=== PATIENT | male | born 1960 | race Caucasian/White ===

== ENCOUNTER 2016-12-19 11:02 | Outpatient (CLI) | payer OTHER ==
[~2016-12-19] VITALS: Ht 180.3 cm; Wt 120.5 kg
--- NOTE | ~2016-12-19 | HEMODYNAMI ---
PATIENT:MELISA PATTERSON MEDICAL RECORD: [id number] : 58 LOCATION:[facility] ADMISSION DATE: 12/19/16 Generatedon:12/19/201614:03 Patient name: MELISA PATTERSON Patient #: [id number] SSN: DO B: 1960 Date of study: 12/19/2016 Page: Of Hemodynamic Procedure Report Patient Data Patient Demographics Procedure consent was obtained First Name: MELISA Gender: Male Last Name: YESENIA : 1960 Middle Initial: L Age: 56 year(s) Patient #: [id number] Race: Unknown Additional ID: [id number] Contact details Address: [place] [address] State: [place] City: [place] Zip code: [address] Past Medical History Allergies: No known allergies Admission Admission Data Admission Date: 12/19/2016 Admission Time: 11:02 Admit Source: Other Insurance Payor: Private health insurance Height (in.): 71 BSA: 2.38 (m2) Height (cm.): 180.34 BMI: 36.96 (kg/m2) Weight (lbs.): 265 Weight (kg.): 120.2 Lab Results Lab Result Date: 12/19/2016 Lab Result Time: 11:40 Biochemistry Name Units Result Min Max Creatinine mg/dl 2.7 --(----)-* 0.6 1.3 CBC Name Units Result Min Max Hemoglobin g/dl 9.4 *-(----)-- 13.5 17.5 Coagulation Name Units Result Min Max INR units 1.11 --(---*)-- 0.85 1.17 PT sec 14.2 --(---*)-- 11.6 15 Procedure Procedure Types Cath Procedure Diagnostic Procedure [facility] w/Coronaries Procedure Description Procedure Date Procedure Date: 12/19/2016 Procedure Start Time: 13:49 Procedure End Time: 14:02 Procedure Staff Name Function Minor Spaulding MD Performing Physician Francine Luong RT Scrub Kristen Xavier RN Nurse Quentin Tyson RN Guide Alpine Mehrdad Worthington RT Monitor Alex Bustos RT Monitor Procedure Data Cath Procedure Fluoroscopy Diagnostic fluoroscopy Total fluoroscopy Time: 4.3 time: 4.3 min min Diagnostic fluoroscopy Total fluoroscopy dose: 838 dose: 838 mGy mGy Contrast Material Contrast Material Type Amount (ml) Isovue 300 72 Entry Location Entry Primary Successful Side Size Upsize Upsize Entry Closure Succes sful Closure Location (Fr) 1 (Fr) 2 (Fr) Remarks Device Remarks Radial Right 6 Fr artery Short Estimated blood loss: 10 ml Diagnostic catheters Device Type Used For End Catheter Placement Terumo 5Fr Jackson 110cm Coronary catheter Angiography Procedure Complications No complications Procedure Medications Medication Administration Route Dosage Oxygen NC 2 l/min Benadryl I.V. 50 mg Lidocaine 2% added to field 20 Heparin Flush Bag added to field 2 bags (1000units/500ml NS) Zofran I.V. 4 mg Versed I.V. 1 mg Fentanyl I.V. 50 mcg Versed I.V. 1 mg Fentanyl I.V. 50 mcg Radial Cocktail I.A. 1 syringe (Verapomil 2mg/Nitro 400mcg/Heparin 1500units) Versed I.V. 1 mg Hemodynamics Rest BSA: 2.38 (m2) HGB: 9.4 (g/dl) O2 Consumption: Estimated: 275.12 (ml/min) O2 Con sumption indexed: Estimated:115.6 (ml/min/m) Heart Rate: 63 (bpm) Pressure Samples Time Site Value (mmHg) Purpose Heart Use Rate(bpm) 13:52 AO 148/68(98) Snapshot 62 13:56 LV 95/6,7 Snapshot 41 13:56 AO 160/70(103) Pullback 62 13:56 LV 143/19,89 Pullback 62 Gradients Valve Time Site 1 Site 2 Mean SEP/DFP Peak To Heart Use (mmHg) (sec/min) Peak Rate (mmHg) (bpm) Aortic 13:56 LV AO 0 10 0 62 143/19,89 160/70(103) Calculations Valve P-P Mean Valve Index Valve Source Name Gradient Area Flow (cm2) Aortic 0 0 0 0 Snapshots Pre Cath Intra NCS Post Cath Vital Signs Time Heart Resp SPO2 etCO2 [id number] NIBP (mmHg) Rhythm Pain Sedation Rate (ipm) (%) (mmHg) (mmHg) Status Level (bpm) 13:33:08 61 16 97 0 0 Measuring NSR 0 (11) 10(A) , No pain 13:33:51 60 25 98 0 0 195/85(156) NSR 0 (11) 10(A) , No pain 13:38:29 56 18 98 0 0 208/86(159) NSR 0 (11) 10(A) , No pain 13:43:06 57 19 98 0 0 195/88(149) NSR 0 (11) 10(A) , No pain 13:47:38 62 15 98 0 0 179/81(142) NSR 0 (11) 9(A) , No pain 13:53:06 62 26 97 0 0 156/74(118) NSR 0 (11) 9(A) , No pain 13:57:28 65 26 96 0 0 157/78(120) NSR 0 (11) 9(A) , No pain 14:01:54 62 28 97 0 0 160/75(135) NSR 0 (11) 10(A) , No pain Medications Time Medication Route Dose Verified Delivered Reason Notes Effectiveness by by 13:38:21 Oxygen NC 2 l/min Minor Peterson used for [facility]. Iam Xavier RN procedure 13:38:33 Benadryl I.V. 50 mg Minor Peterson used for [facility]. Iam Xavier RN procedure 13:41:43 Lidocaine 2% added 20ml Minor Gaxiola for local to vial [facility] anesthetic field MD FRAIRE 13:41:44 Zofran I.V. 4 mg Minor Peterson [address] [facility] Iam Xavier RN physician 13:41:49 Heparin Flush added 2 bags Minor Gaxiola used for Bag to [facility] procedure (1000units/500ml field MD FRAIRE NS) 13:44:52 Versed I.V. 1 mg Minor Peterson for sedation St. Iam Xavier RN, MD 13:44:57 Fentanyl I.V. 50 mcg Minor Peterson for sedation St. Iam Xavier RN, MD 13:50:41 Radial Cocktail I.A. 1 Minor Gaxiola for (Verapomil syringe [facility] vasodilation 2mg/Nitro MD FRAIRE 400mcg/Heparin 1500units) 13:52:08 Versed I.V. 1 mg Minor Peterson for sedation St. Iam Xavier RN, MD 13:52:11 Fentanyl I.V. 50 mcg Minor Peterson for sedation St. Iam Xavier RN, MD 13:56:36 Versed I.V. 1 mg Minor Gaxiola for sedation St. Iam Spaulding MD, MD Procedure Log Time Note 13:27:52 Diagnostic Cath status Elective 13:27:55 Quentin Tyson RN sent for patient. Start room use. 13:27:56 Time tracking: Regular hours 13:28:02 Plan of Care:Hemodynamics will remain stable., Cardiac rhythm will remain stable., Comfort level will be maintained., Respiratory function will remain adequate., Patient/ family verbilizes understanding of procedure., Procedure tolerated without complication., Recovers from procedure without complications.. 13:28:43 Patient received from Outpatients to [facility] 2 Alert and oriented. Tansferred to table in Supine position. 13:28:47 Warm blankets applied, and parveen hugger turned on for patient comfort. 13:28:48 Correct patient and procedure confirmed by team. 13:28:51 Signed procedure consent form obtained from patient. 13:28:58 ECG and BP/O2 sat monitors applied to patient. 13:29:04 Baseline sample Acquired. 13:31:17 Vital chart was started 13:31:25 Baseline sample Acquired. 13:31:32 Rhythm: sinus rhythm 13:33:23 Full Disclosure recording started 13:35:10 Lab Result : Creatinine 2.7 mg/dl 13:35:10 Lab Result : Hemoglobin 9.4 g/dl 13:35:10 Lab Result : INR 1.11 units 13:35:10 Lab Result : PT 14.2 sec 13:35:13 Lab results completed and on chart. 13:37:19 Patient Height : 71 inches 13:37:24 Patient Weight : 265 lbs 13:37:24 Admit Source: Other 13:37:30 Insurance Payor : Private health insurance 13:38:21 Oxygen 2 l/min NC was given by Kristen Xavier RN; used for procedure; 13:38:33 Benadryl 50 mg I.V. was given by Kristen Xavier RN; used for procedure; 13:38:43 H&P Date Dictated: 12/19/2016 Within 30 days and on chart., H&P Addendum completed by physician on day of procedure. (MUST COMPLETE FOR ALL OUTPATIENTS). 13:38:45 Pre-procedure instructions explained to patient. 13:38:45 Pre-op teaching completed and patient verbalized understanding. 13:38:46 Family in waiting room. 13:38:47 Patient NPO since Midnight. 13:38:52 Patient allergic to No known allergies 13:38:55 Is the patient allergic to Iodine/contrast media? No. 13:38:56 Is patient on blood thinner?Yes 13:39:00 ACC The patient was administered the following blood thiners within the last 24 hours: None 13:39:02 Patient diabetic? Yes. 13:39:06 If diabetic: On Metformin? No 13:39:09 Previous problem with sedation/anesthesia? Yes nausea 13:39:12 Snore? Yes 13:39:28 Sleep apnea? Yes 13:39:29 Deviated septum? No 13:39:30 Opens mouth fully? Yes 13:39:31 Sticks out tongue? Yes 13:39:34 Airway obstruction? No ? 13:39:37 Dentures? No ? 13:39:43 Pre procedure: right dorsailis pedis pulse 1+ Palpable, but thready & weak; easily obliterated 13:39:46 Patient pain scale 0/10 ?. 13:39:50 IV patent on arrival in left antecubital with 0.9% NaCl at KVO. 13:40:05 Modified Richard's test Ulnar < 7 seconds 13:40:07 Right Radial & Right Groin area was prepped with chlora-prep and draped in sterile fashion 13:40:13 Alarms reviewed by R. N. 13:40:13 Sharps counted by scrub and verified by R.N. 13:40:18 Use device set Radial Dx 13:40:21 Tegaderm 4 x 4 opened to sterile field. 13:40:21 Acist Manifold opened to sterile field. 13:40:22 Acist Hand Control opened to sterile field. 13:40:23 Acist Syringe opened to sterile field. 13:40:23 Cardinal Cath Pack opened to sterile field. 13:40:24 Bag Decanter opened to sterile field. 13:40:24 Terumo 6Fr Slender Glidesheath opened to sterile field. 13:40:25 St Gustavo 260cm J .035 wire opened to sterile field. 13:40:33 --------ALL STOP TIME OUT------ 13:40:33 Final Timeout: patient, procedure, and site verified with staff and physician. All members of the team are in agreement. 13:40:35 Right Radial & Right Groin site verified by team. 13:40:37 Physical assessment completed. ASA score P 2 - A patient with mild systemic disease as per Minor Spaulding MD. 13:40:40 Sedation plan: IV Moderate Sedation Versed, Fentanyl 13:41:43 Lidocaine 2% 20ml vial added to field was given by Minor Spaulding MD; for local anesthetic; 13::44 Zofran 4 mg I.V. was given by Kristen Xavier RN; Per physician; 13:41:49 Heparin Flush Bag (1000units/500ml NS) 2 bags added to field was given by Minor Spaulding MD; used for procedure; 13:41:49 ACC Patient presents with Stable Angina CCS Anginal Class 2--Slight limitation of ordinary activity. 13:41:57 ACCPatient has been prescribed/administered the following anti-anginal medication within the last 2 weeks: None 13:44:52 Versed 1 mg I.V. was given by Kristen Xavier RN; for sedation; 13:44:57 Fentanyl 50 mcg I.V. was given by Kristen Xavier RN; for sedation; 13:46:34 Zero performed for pressure channel P1 13:49:12 Procedure started. 13:49:22 Local anesthetic to right radial artery with Lidocaine 2% by Minor Spaulding MD.INITIAL ACCESS ONLY 13:49:33 A 6 Fr Short sheath was inserted into the Right Radial artery 13:49:54 A Terumo 5Fr Jackson 110cm catheter was advanced over the wire and used for Coronary Angiography. 13:50:41 Radial Cocktail (Verapomil 2mg/Nitro 400mcg/Heparin 1500units) 1 syringe I.A. was given by Minor Spaulding MD; for vasodilation; 13:52:08 Versed 1 mg I.V. was given by Kristen Xavier RN; for sedation; 13:52:11 Fentanyl 50 mcg I.V. was given by Kristen Xavier RN; for sedation; 13:52:30 RCA angiography performed. 13:54:24 LCA angiography performed. 13:56:31 LV angiography performed. 13:56:32 LV gram done using LI 13:56:36 Versed 1 mg I.V. was given by Minor Spaulding MD; for sedation; 13:56:39 EF : 50 % 13:56:42 LV hemodynamics recorded. 13:56:45 Injector settings: Ml/sec: 5, Volume: 10, 13:56:48 Catheter removed. 13:57:14 Terumo TR Band Large opened to sterile field. 13:57:20 Procedure ended.(Physican Out) 13:57:34 Fluoroscopy time 04.30 minutes. 13:57:37 Flurop Dose total: 838 13:57:37 Fluoroscopy dose: 838 mGy 13:57:42 Contrast amount:Isovue 300 72ml. 13:57:44 Sharps counted by scrub and verified by R.N. 13:58:24 TR band inflated with 12cc of air. 13:58:33 Insertion/operative site no bleeding no hematoma. 13:58:36 Post Procedure Pulses reassessed and unchanged 13:58:39 Post-procedure physical assessment completed. ASA score P 2 - A patient with mild systemic disease as per Minor Spaulding MD. 13:58:43 Post procedure rhythm: unchanged. 13:58:47 Estimated blood loss: 10 ml 13:58:51 Post procedure instruction explained to patient.Patient verbalizes understanding. 13:58:52 Patient needs reinforcement of post procedure teaching. 13:58:53 Procedure and supply charges have been captured, reviewed, submitted and are correct. 13:58:56 Procedure Complication : No complications 14:02:26 Vital chart was stopped 14:02:27 See physician's report for complete and final results. 14:02:33 Report given to Post Procedure Room. 14:02:35 Patient transfered to Post Procedure Room with Stretcher. 14:02:38 Procedure ended. 14:02:38 Full Disclosure recording stopped 14:02:42 End room use (Document Last) Device Usage Item Name Manufacture Quantity Catalog Hospital Part Current Minimal Lot# / Number Charge Number Stock Stock Serial# Code Tegaderm 4 1 [id number] [id number] [id number] 5 x 4 Acist Acist 1 41838 798024 962058 686638 5 Manifold [employer] Acist Hand Acist 1 31810 513074 057207 203816 5 Control [employer] Inc Acist Acist 1 99243 615877 887094 725424 20 Syringe [employer] Inc Cardinal Cardinal 1 [id number] 801312 94877 597892 5 Cath Pack Health Bag Microtek 1 2002S 260405 35077 654369 5 Decanter [employer] Inc. Terumo 6Fr Terumo 1 [id number] 652417 201327 838453 [address] Gustavo 1 444613 963756 473693 897273 30 260cm J .035 wire Terumo 5Fr Terumo 1 40-7194 181516 520983 836436 5 Jackson 110cm catheter Terumo TR Terumo 1 [id number] 007162 997683 40 Band Large Signature Audit [place] Stage Time Signature Unsigned Intra-Procedure 12/19/2016 Alex Bustos 2:03:27 PM RT(R) Signatures Monitor : Mehrdad Worthington RT Signature : Date : Time : Monitor : Alex Bustos RT Signature : Date : Time : [address] [address]
[2016-12-19] MEDS ORDERED: JANUVIA100 MG PO (11:54)
[2016-12-19] MEDS ORDERED: COLCRYS0.6 MG PO (11:55)
[2016-12-19] MEDS ORDERED: PRAVACHOL40 MG PO (11:55)
[2016-12-19] MEDS ORDERED: METOLAZONE5 MG PO (11:56)
[2016-12-19] MEDS ORDERED: COUMADIN5 MG PO (11:57)
[2016-12-19] MEDS ORDERED: COUMADIN7.5 MG PO (11:58)
[2016-12-19] MEDS ORDERED: COREG25 MG PO (11:59)
[2016-12-19] MEDS ORDERED: LISINOPRIL10 MG PO (11:59)
[2016-12-19] MEDS ORDERED: FUROSEMIDE20 MG PO (12:00)
[2016-12-19] MEDS ORDERED: LANOXIN250 MCG PO (12:01)
[2016-12-19] MEDS ORDERED: ALDACTONE50 MG PO (12:01)
[2016-12-19 12:03] VITALS: Ht 180.3 cm; Wt 120.5 kg
[2016-12-19 12:15] LABS: BASOPHILS 0.2 % (0.0-2.0); EOSINOPHILS 3.2 % (0-7); HEMATOCRIT 27.8 % (42.0-54.0); HEMOGLOBIN 9.4 g/dL (13.5-17.5); IMMATURE GRANULOCYTES 0.7 % (0-5); LYMPHOCYTES 11.2 % (15-50); MCH 27.7 pg (26.0-34.0); MCHC 33.8 g/dL (31.0-37.0); MEAN PLATELET VOLUME 13.2 fL (7.4-10.4); NEUTROPHILS 78.7 % (40-80); PLATELET COUNT 147 10x3/uL (130-400); RBC 3.39 10x6/uL (4.20-6.10); RDW 13.8 % (11.5-14.5); WBC 10.1 10x3/uL (4.8-10.8)
[2016-12-19 12:29] LABS: INR 1.11 (0.85-1.17); PROTIME 14.2 SECONDS (11.6-15.0)
[2016-12-19 12:34] LABS: ANION GAP 15.9 mmol/L (8-16); CARBON DIOXIDE 25.2 mmol/L (21.0-32.0); CREATININE - SERUM 2.7 mg/dL (0.6-1.3)
[2016-12-19 12:39] LABS: POTASSIUM - SERUM 6.1 mmol/L (3.5-5.1)
--- NOTE | 2016-12-19 14:16 | HP ---
PATIENT: MELSIA PATTERSON MEDICAL RECORD: [id number] ACCOUNT: [id number] LOCATION:[facility]EN[facility] : 58 ADMISSION DATE: 12/19/16 HISTORY AND PHYSICAL EXAMINATION HISTORY OF PRESENT ILLNESS: A 56-year-old gentleman with a history of cardiomyopathy, coronary artery disease via nuclear stress stenting. Recently, underwent nuclear stress testing found to have reversible ischemia. He has been admitted for diagnostic angiography. PAST MEDICAL HISTORY: Includes: 1. History of diabetes mellitus. 2. Hypertension. 3. Cardiomyopathy. 4. Dyslipidemia. MEDICATIONS: Include Aldactone 50 every day, Coreg 25 every day, digoxin 0.25 every day, Lasix 20 every day, lisinopril 10 every day, Januvia 100 mg p.o. every day, and pravastatin 40 every day. PHYSICAL EXAMINATION: GENERAL: Pleasant gentleman in no acute distress. HEENT: Normocephalic and atraumatic. NECK: No JVD or bruit. HEART: Regular. LUNGS: Santos clear. ABDOMEN: Soft and nontender. EXTREMITIES: Pulses 2+ and equal. There is no edema. IMPRESSION: Positive nuclear scan. PLAN: For diagnostic angiography, intervention based on above. TRANSINT:[id number] Voice Confirmation ID: [id number] DOCUMENT ID: [id number] MECHE PIMENTEL MD at 1416 CC: [id number] DICTATION DATE: 12/19/16 1342 CLOUD ADMINISTRATOR: 12/19/[address] [facility] [address] [place] [address]
--- NOTE | 2016-12-19 14:28 | NUR ---
VSS WITH CHEST PAIN DENIED TR BAND TO R/WRIST CDI NO BLEEDING NO HEMATOMA NOTED FAMILY AT SIDE WILL MONITOR
--- NOTE | 2016-12-19 15:04 | NUR ---
TR BAND TO R/WRIST CDI NO BLEEDING NO HEAMATOMA NOTED. CHEST PAIN IS DENIED. VSS WILL MONITOR
--- NOTE | 2016-12-19 15:55 | NUR ---
3 CC AIR REMOVED FROM TR BAND WITH NO BLEEDING NO HEMATOMA NOTED PIV REMOVED FROM LEFT ARM WITH DRESSING APPLIED PATIENT UP TO GET DRESSED FOR DISCHARGE
--- NOTE | 2016-12-19 16:04 | NUR ---
TR BAND REMOVED FROM R WRIST, DRESSED WITH 2X2 AND TEGADERM. D/C INSTRUCTIONS DISCUSSED WITH PATIENT AND AT BEDSIDE. WHEELED DOWN VIA WHEELCHAIR BY CATH TEAM.
--- NOTE | 2016-12-20 15:33 | OP ---
PATIENT NAME: MELISA PATTERSON MEDICAL RECORD: [id number] :58 LOCATION:D.CAT ADMISSION DATE: SURGEON: MECHE PIMENTEL MD DATE OF OPERATION: 12/19/2016 PROCEDURE: Left heart catheterization, selective coronary angiography, right radial artery approach. CATHETERS: A radial sheath, Ray catheter. The procedure was tolerated and the patient returned to solorzano. Sheath was removed and a TR band was placed. FINDINGS: Left ventriculography in the 30-degree LI view: LV is globally hypo, EF is lower limits of normal at 50%. CORONARY ANATOMY: Left main: Left main is free of disease. LAD: Free of disease in the diagonal system. CIRCUMFLEX: Free of disease in the marginal system. RIGHT CORONARY ARTERY: Large vessel, free of disease. IMPRESSION: A large smooth-walled coronary vessels. No evidence of disease. LV function at lower limits of normal. TRANSINT:[id number] Voice Confirmation ID: [id number] DOCUMENT ID: [id number] MECHE PIMENTEL MD at 1533 CC: [id number] DICTATION DATE: 12/19/16 1403 [employer]: 12/19/161916 DEP CLI 12/19/16 [facility] [address] [place] [address]
== END 2016-12-19 16:21 | disposition home or self-care (01) ==
LOC: D.CATH 11:02
PROVIDERS: Internal Medicine Interventional Cardiology
DX: I20.9 Angina pectoris, unspecified (principal); I10 Essential (primary) hypertension; R94.30 Abnormal result of cardiovascular function study, unspecified; E11.9 Type 2 diabetes mellitus without complications

== ENCOUNTER → 2018-12-19 05:55 | Day surgery (SDC) | payer OTHER ==
[2016-12-19 12:03] VITALS: BMI 37.0
[2018-12-18 16:01] LABS: BASOPHILS 0.2 % (0-2); EOSINOPHILS 2.5 % (0-7); HEMATOCRIT 31.6 % (42.0-54.0); HEMOGLOBIN 9.8 g/dL (13.5-17.5); IMMATURE GRANULOCYTES 0.3 % (0-5); LYMPHOCYTES 10.4 % (15-50); MCH 26.8 pg (26.0-34.0); MCV 86.3 fL (80.0-100.0); MEAN PLATELET VOLUME 12.5 fL (7.4-10.4); NEUTROPHILS 77.6 % (40-80); PLATELET COUNT 153 10x3/uL (130-400); RBC 3.66 10x6/uL (4.20-6.10); RDW 15.2 % (11.5-14.5); WBC 9.1 10x3/uL (4.8-10.8)
[2018-12-18 16:06] LABS: ANION GAP 15.5 mmol/L (8-16); CARBON DIOXIDE 30.1 mmol/L (21.0-32.0); CREATININE - SERUM 3.5 mg/dL (0.6-1.3); POTASSIUM - SERUM 4.6 mmol/L (3.5-5.1)
[2018-12-18 16:09] LABS: APTT 38.1 SECONDS (22.8-39.4); INR 1.21 (0.85-1.17); PROTIME 14.8 SECONDS (11.6-15.0)
[2018-12-18 16:12] LABS: CALCIUM 6.4 mg/dL (8.5-10.1)
--- NOTE | ~2018-12-19 | OP ---
PATIENT NAME: MELISA QUINONES MEDICAL RECORD: [id number] :58 LOCATION:D.[facility] ADMISSION DATE: SURGEON: INA CALDERON MD DATE OF OPERATION: 12/19/2018 PREOPERATIVE DIAGNOSIS: Chronic kidney disease IV. POSTOPERATIVE DIAGNOSIS: Chronic kidney disease IV. REFERRING PHYSICIAN: Jayant Alva MD OPERATION PERFORMED: Creation of a Nena type brachiocephalic AV fistula. SURGEON: Ina Calderon MD ANESTHESIA: Nerve block plus general with LMA per P[employer]ER [employer]. PREOPERATIVE NOTE: Mr. Quinones is a very nice 58-year-old white male from [place] with CKD IV. He is brought to the operating room at this time for creation of an AV access in the right upper extremity. DESCRIPTION OF PROCEDURE: Under anesthesia in supine position, the patient was prepped and draped in sterile manner. A Hunter drain was used as a proximal venous tourniquet and nitroglycerin ointment was applied to the intact skin of the arm and forearm. I used a duplex ultrasound to examine the veins of the forearm and found the cephalic vein to be disappointing. There was quite a large median cubital and cephalic vein above the antecubital space and I elected to go ahead with a brachiocephalic fistula as I had anticipated preop. A transverse antecubital incision was made and the median cubital vein and the brachial artery exposed and mobilized. They were controlled with Silastic loops. The vein was treated with topical papaverine, it was ligated distally and tributaries were ligated and divided. The vein was divided and bevelled. It was flushed with heparinized saline and hydrostatically distended. The artery was opened for 7-mm and flushed proximally and distally with heparinized saline. An end-to-side mdx-ae-jucs-to-side of artery anastomosis was then performed with 7-0 Prolene continuous running. When completed, the suture line was hemostatic and with release of the occluding loops and clamps, excellent flow immediately developed within the fistula. This was manifested by a palpable thrill and excellent continuous pulsatile Doppler flow signal. There also remained an excellent polyphasic Doppler flow signal in the radial and ulnar arteries at the wrist. The wound was closed with interrupted inverted 3-0 Vicryl and running intracuticular 4-0 Monocryl, Dermabond glue and Maxorb AG. It was dressed with Tegaderm and Cavilon skin prep and the patient awakened and taken to the recovery room. Blood loss was minimal about 2 cc. None was replaced. Sponges, instruments, and needles were accounted for. No drain was used and no surgical specimen submitted for histopathology. PLAN: The patient will be discharged home today and follow up with me in my office next week. He can leave the original operative dressing intact. He can shower and wash over this as desired. He will continue his same medications and he is given a prescription for ten [place] 5/325. OPERATIVE REPORT [id number] MELISA QUINONES MOLINA TRANSINT:[id number] Voice Confirmation ID: [id number] DOCUMENT ID: [id number] INA CALDERON MD CC: JAYANT ALVA [id number] DICTATION DATE: 12/19/18 1044 MANAGER LEAN: 12/19/18 1136 REG [facility] [address] [place] [address]
[~2018-12-19 05:55] MED LIST: ALDACTONE50 MG PO; BAYER CHEWABLE81 MG PO; BUMETANIDE0.5 MG PO; COLCRYS0.6 MG PO; COREG25 MG PO; COUMADIN5 MG PO; COUMADIN7.5 MG PO; FUROSEMIDE20 MG PO; HYDRALAZINE HCL50 MG PO; HYDROCODON-ACE1 EAC7 PO; JANUVIA100 MG PO; LANOXIN250 MCG PO; LISINOPRIL10 MG PO; METOLAZONE5 MG PO; NOVOLIN 70/30 110 ML SC; PRAVACHOL40 MG PO; TRESIBA FL100 UNIT/1 SC
--- NOTE | 2018-12-19 12:57 | NUR ---
1235 PATIENT HAS DONE WELL IN EXTENDED RECOVERY. ABLE TO EAT AND DRINK WITHOUT NAUSEA. IV REMOVED WITH CATHALON INTACT. ALL DC INSTRUCTIONS GIVEN. VOICED UNDERSTANDING. AMBULATED OUT WITHOUT DIFFICULTY AND ASSISTED TO CAR WITH . ADVISED TO CALL OR COME BACK IF ANY PROBLEMS.
== END | disposition home or self-care (01) ==
LOC: D.OPS 05:55
PROVIDERS: Surgery
DX: N18.4 Chronic kidney disease, stage 4 (severe) (principal); Z01.812 Encounter for preprocedural laboratory examination